=== PATIENT | male | born 1990 | race Caucasian/White ===

== ENCOUNTER → 2016-03-17 | Outpatient (CLI) | payer BC | LOC: BHSO 15:19 | DX: F41.1 Generalized anxiety disorder (principal) ==

== ENCOUNTER → 2016-12-18 | Outpatient (CLI) | payer BC | LOC: BHSO 09:50 | DX: F41.1 Generalized anxiety disorder (principal) ==

== ENCOUNTER → 2017-06-29 | Outpatient (CLI) | payer BC | LOC: BHSO 13:02 | DX: F33.1 Major depressive disorder, recurrent, moderate (principal) ==

== ENCOUNTER → 2017-08-04 | Outpatient (CLI) | payer BC | LOC: BHSO 10:42 | DX: F33.0 Major depressive disorder, recurrent, mild (principal) ==

== ENCOUNTER → 2017-08-31 | Outpatient (CLI) | payer BC | LOC: BHSO 14:45 | DX: F41.1 Generalized anxiety disorder (principal) ==

== ENCOUNTER → 2017-09-17 | Outpatient (CLI) | payer BC | LOC: BHSO 14:51 | DX: F33.1 Major depressive disorder, recurrent, moderate (principal) ==

== ENCOUNTER 2021-10-29 17:20 | Emergency (ER) | payer OTHER ==
[~2021-10-29] VITALS: Ht 182.9 cm; Wt 77.3 kg
[2021-10-29 17:38] VITALS: TEMP 98.2
[2021-10-29] MEDS ORDERED: DOXYCYCLINE 10100 MG PO (18:05)
[2021-10-29 18:14] VITALS: BP 123/89; PULSE 92
== END 2021-10-29 18:18 | disposition home or self-care (01) ==
LOC: COL.ER 17:20
DX: N45.1 Epididymitis (principal)